=== PATIENT | female | born 1960 | race American Indian/Alaskan Native ===

== ENCOUNTER 2016-09-18 14:13 | Outpatient (CLI) | payer MEDICARE ==
--- NOTE | 2016-09-18 15:38 | XRay Report ---
Left knee 3 views: History: Pain. Findings: No articular abnormality. No fracture or dislocation. Very faint calcification adjacent to the medial femoral condyle. Impression: Faint calcification adjacent to medial femoral condyle may be related to calcific changes at the medial collateral ligament.
== END 2016-09-18 14:14 | disposition home or self-care (01) ==
LOC: SPVIMAG 14:13
PROVIDERS: ATTEND Family Medicine Adult Medicine
DX: M25.862 Other specified joint disorders, left knee (principal)